=== PATIENT | male | born 2000 | race Caucasian/White ===

== ENCOUNTER 2022-01-13 10:15 | Outpatient (CLI) | payer OTHER, SELFPAY ==
[2022-01-13 14:58] LABS: Hepatitis B Surface Antigen* Negative (Negative)
[2022-01-13 15:12] LABS: HIV 1/2/P24 Combo Screen* Negative (Negative)
[2022-01-13 15:16] LABS: Hepatitis C Virus Antibody* Negative (Negative)
[2022-01-13 16:08] LABS: Hepatitis B Surface Antibody* Negative (Negative)
[2022-01-13 18:30] LABS: Chlamydia DNA Amplified* NOT DETECTED (No Detected)
[2022-01-13 18:30] LABS: Chlamydia DNA Amplified* NOT DETECTED (No Detected); GC DNA Amplified* NOT DETECTED (No Detected)
[2022-01-13 18:30] LABS: Chlamydia DNA Amplified* NOT DETECTED (No Detected); GC DNA Amplified* NOT DETECTED (No Detected)
[2022-01-13 18:32] LABS: GC DNA Amplified* DETECTED (No Detected)
[2022-01-14 21:41] LABS: Hepatitis B Core Antibodies Negative (Negative)
[2022-01-15 10:47] LABS: Rapid Plasma Reagin (RPR) Non Reactive (Non Reactive)
== END 2022-01-13 10:16 | disposition home or self-care (01) ==
PROVIDERS: PCP Family Medicine; Visit Provider Emergency Medicine
DX: A64 Unspecified sexually transmitted disease (principal); K62.89 Other specified diseases of anus and rectum; Z11.3 Encounter for screening for infections with a predominantly sexual mode of transmission
CPT/HCPCS: 86592; 86703; 86704; 86706; 86803; 87340; 87491; 87591; 87593

== ENCOUNTER 2022-09-30 11:30 | Outpatient (CLI) | payer OTHER, SELFPAY | END 2022-09-30 11:31 | disposition home or self-care (01) | LOC: NFLDREF 10-02 12:43 | PROVIDERS: PCP Family Medicine; Referring Provider Family Medicine; Visit Provider Nurse Practitioner Family | DX: Z79.899 Other long term (current) drug therapy (principal); F41.9 Anxiety disorder, unspecified; F32.A Depression, unspecified; G47.00 Insomnia, unspecified; F41.0 Panic disorder [episodic paroxysmal anxiety]; F40.10 Social phobia, unspecified; R45.851 Suicidal ideations; F12.90 Cannabis use, unspecified, uncomplicated; F43.10 Post-traumatic stress disorder, unspecified | CPT/HCPCS: 80053; 82306; 84443 ==

== ENCOUNTER 2025-01-24 09:17 | Outpatient (CLI) | payer BC, SELFPAY ==
[2025-01-24 14:41] LABS: Chlamydia DNA Amplified* NOT DETECTED (No Detected); GC DNA Amplified* NOT DETECTED (No Detected)
== END 2025-01-24 09:18 | disposition home or self-care (01) ==
PROVIDERS: PCP Family Medicine; Visit Provider Family Medicine
DX: Z11.3 Encounter for screening for infections with a predominantly sexual mode of transmission (principal); F41.8 Other specified anxiety disorders; G25.81 Restless legs syndrome; R00.2 Palpitations; Z00.00 Encounter for general adult medical examination without abnormal findings; R53.83 Other fatigue; E10.9 Type 1 diabetes mellitus without complications; Z78.9 Other specified health status
CPT/HCPCS: 80053; 80061; 82306; 82607; 84443; 86703; 86803; 87491; 87591